=== PATIENT | male | born 2000 | race Caucasian/White ===

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

== ENCOUNTER 2019-08-11 00:26 | Emergency (ER) | payer SELFPAY ==
[2019-08-11] MEDS ORDERED: NORMAL SALINE 1000 ML 1,000 ML IV ONE (04:41)
--- NOTE | 2019-08-11 04:43 | ER Document Report ---
ED General - General Chief Complaint: Altered Mental Status Stated Complaint: REPORTS SYNCOPAL EPISODE Time Seen by Provider: 08/11/19 04:20 Notes: Patient is a 19-year-old male that comes to the emergency department for chief complaint of an episode where he became extremely shaky and then felt like he could not move or speak. 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 He denies difficulty breathing, passing out, headache, fever, nausea or vomiting. He denies alcohol, he denies recreational drugs otherwise. He denies any daily medications or past medical history. Girlfriend and mother at bedside. Patient states this is never happened to him before and he is smoked from the same stash in the past. TRAVEL OUTSIDE OF THE [place] IN LAST 30 DAYS: No - Related Data Allergies/Adverse Reactions: No Known Allergies Allergy (Unverified 08/11/19 05:50) Past Medical History - General Information source: Patient - Social History Smoking Status: Never Smoker Frequency of alcohol use: None Drug Abuse: Marijuana Lives with: Family Family History: Reviewed & Not Pertinent Patient has suicidal ideation: No Patient has homicidal ideation: No Renal/ Medical History: Denies: Hx Peritoneal Dialysis Surgical Hx: Negative - Immunizations Immunizations up to date: Yes Hx Diphtheria, Pertussis, Tetanus Vaccination: Yes - 09/02/08 Review of Systems - Review of Systems Constitutional: See HPI EENT: No symptoms reported Cardiovascular: No symptoms reported Respiratory: No symptoms reported Gastrointestinal: No symptoms reported Genitourinary: No symptoms reported Male Genitourinary: No symptoms reported Musculoskeletal: See HPI Skin: No symptoms reported Hematologic/Lymphatic: No symptoms reported Neurological/Psychological: See HPI Physical Exam - Vital signs Vitals: Temp Pulse Resp BP Pulse Ox 98.6 F 64 16 125/79 97 08/11/19 01:04 08/11/19 01:04 08/11/19 01:04 08/11/19 01:04 08/11/19 01:04 - Notes Notes: GENERAL: Sleeping but easily aroused HEAD: Normocephalic, atraumatic. EYES: Pupils equal, round, and reactive to light. Extraocular movements intact. ENT: Oral mucosa dry, tongue midline. Oropharynx unremarkable. Airway patent. NECK: Full range of motion. Supple. Trachea midline. LUNGS: Clear to auscultation bilaterally, no wheezes, rales, or rhonchi. No respiratory distress. HEART: Regular rate and rhythm. No murmur ABDOMEN: Soft, non-tender. Non-distended. Bowel sounds present in all 4 quadrants. GENITOURINARY: Deferred EXTREMITIES: Moves all 4 extremities spontaneously. No edema, normal radial and dorsalis pedis pulses bilaterally. No cyanosis. BACK: no cervical, thoracic, lumbar midline tenderness. No saddle anesthesia, normal distal neurovascular exam. Moves all extremities in full range of motion. NEUROLOGICAL: Alert and oriented x3. Normal speech. Cranial nerves II through XII grossly intact. PSYCH: Poor eye contact and speaks in low tones SKIN: Warm, dry, normal turgor. No rashes or lesions noted. Course - Re-evaluation Re-evalutation: Patient snoring, sleeping but easily aroused. Initially he was speaking in very quiet tones, however as I discussed his work-up, his symptoms, his evaluation his voice became much stronger. Reportedly patient was very shaky when they brought him to the room in a wheelchair then he got up, ambulated to the bed without any difficulty, and then began shaking again prior to my evaluation per the nursing staff. Patient is not tachycardic, vital signs unremarkable. CBC, chemistry, urinalysis unremarkable except for elevated specific gravity, he was given IV fluids. EKG unremarkable. Drug screen shows marijuana but is otherwise unremarkable. Patient states he did not sleep well last night, did not hydrate at work, and then smoked the weed with subsequent symptoms. Symptoms have resolved. No complaints at this time after IV fluids. Discussed with patient, family, discussed precautions, illegal substance side effects, and return precautions. They state understanding and agreement. Stable at time of discharge. - Vital Signs Vital signs: Temp Pulse Resp BP Pulse Ox 97.9 F 62 12 118/74 100 08/11/19 06:45 08/11/19 06:45 08/11/19 06:45 08/11/19 06:45 08/11/19 06:45 - Laboratory Result Diagrams: 08/11/19 05:00 08/11/19 05:00 - EKG Interpretation by Me Additional EKG results interpreted by me: EKG shows sinus rhythm at a rate of 61, normal axis, no T wave inversions or ST segment changes in consecutive leads. Amplitude is large but patient is very slim and is somewhat muscular. Discharge - Discharge Clinical Impression: Dehydration, Muscle tremor, Medication side effects, Substance abuse Condition: Stable Disposition: HOME, SELF-CARE Additional Instructions: Your work-up is reassuring, you have been rehydrated, continue to hydrate and rest. Symptoms should resolve. Avoid THC and other illegal substances, these have a variety of side effects and can be dangerous. Return to the emergency department for any concerning or worsening symptoms including vomiting, fever, difficulty breathing, or any other concerning or worsening symptoms. Forms: Treatment of Relative/Child
[2019-08-11 05:20] LABS: ABSOLUTE EOSINOPHILS # (AUTO) 0.1 10^3/uL (0.0-0.6); ABSOLUTE LYMPHOCYTES (AUTO) 2.9 10^3/uL (0.5-4.7); ABSOLUTE MONOCYTES (AUTO) 0.6 10^3/uL (0.1-1.4); ABSOLUTE NEUT (AUTO) 3.9 10^3/uL (1.7-8.2); BASOPHILS % (AUTO) 0.3 % (0-2); EOSINOPHILS % (AUTO) 1.8 % (0-6); HEMATOCRIT 40.3 % (37.9-51.0); HEMOGLOBIN 14.1 g/dL (13.5-17.0); LYMPHOCYTES % (AUTO) 38.1 % (13-45); MEAN CORPUSCULAR HEMOGLOBIN 31.1 pg (27.0-33.4); MEAN CORPUSCULAR VOLUME 89 fl (80-97); MONOCYTES % (AUTO) 8.3 % (3-13); PLATELET COUNT 192 10^3/uL (150-450); RED BLOOD COUNT 4.54 10^6/uL (4.35-5.55); RED CELL DISTRIBUTION WIDTH 12.8 % (11.5-14.0); SEGMENTED NEUTROPHILS % (AUTO) 51.5 % (42-78); TOTAL CELLS COUNTED % (AUTO) 100 %; WHITE BLOOD COUNT 7.6 10^3/uL (4.0-10.5)
[2019-08-11 05:31] LABS: APPEARANCE,URINE SLIGHTLY-CLOUDY; BILIRUBIN,URINE NEGATIVE (NEGATIVE); COLOR,URINE YELLOW; GLUCOSE, URINE NEGATIVE (NEGATIVE); KETONES,URINE NEGATIVE (NEGATIVE); LEUKOCYTE ESTERASE,URINE NEGATIVE (NEGATIVE); NITRITE,URINE NEGATIVE (NEGATIVE); PROTEIN,URINE NEGATIVE (NEGATIVE); URINE SPECIFIC GRAVITY 1.023; UROBILINOGEN,URINE NEGATIVE mg/dL (<2.0)
[2019-08-11 05:53] LABS: ALBUMIN 3.8 g/dL (3.5-5.0); ALKALINE PHOSPHATASE 44 U/L (38-126); ANION GAP 9 (5-19); ASPARTATE AMINO TRANSFERASE 21 U/L (17-59); BILIRUBIN,TOTAL 0.6 mg/dL (0.2-1.3); BLOOD UREA NITROGEN 11 mg/dL (7-20); CALCIUM 9.1 mg/dL (8.4-10.2); CARBON DIOXIDE 27 mmol/L (22-30); CHLORIDE 105 mmol/L (98-107); CREATINE KINASE 94 U/L (55-170); GLUCOSE 105 mg/dL (75-110); POTASSIUM 3.6 mmol/L (3.6-5.0); TOTAL PROTEIN 6.7 g/dL (6.3-8.2)
[2019-08-11 05:54] LABS: ALCOHOL < 10 mg/dL (NONE DETECTED)
[2019-08-11 05:57] LABS: URINE AMPHETAMINES SCREEN NEGATIVE; URINE BARBITURATES SCREEN NEGATIVE; URINE BENZODIAZEPINES SCREEN NEGATIVE; URINE COCAINE SCREEN NEGATIVE; URINE METHADONE SCREEN NEGATIVE; URINE PHENCYCLIDINE SCREEN NEGATIVE
[2019-08-11 05:58] LABS: URINE MARIJUANA (THC) SCREEN UNCONFIRMED POSITIVE
[2019-08-11 06:52] VITALS: BP 118/74
--- NOTE | 2019-08-11 07:07 | EKG REPORT ---
SEVERITY:- BORDERLINE ECG - SINUS RHYTHM BORDERLINE Q WAVE IN ANTERIOR LEADS INFERIOR Q WAVES, PROBABLY NORMAL VARIATION : Confirmed by: [place] MD 11-Aug-2019 07:06:02
== END 2019-08-11 06:45 | disposition home or self-care (01) ==
LOC: ER 00:26
DX: T50.905A Adverse effect of unspecified drugs, medicaments and biological substances, initial encounter (principal); E86.0 Dehydration; R25.1 Tremor, unspecified; F19.10 Other psychoactive substance abuse, uncomplicated; F12.10 Cannabis abuse, uncomplicated; R41.82 Altered mental status, unspecified; Y92.9 Unspecified place or not applicable
CPT/HCPCS: 93005; 36415; 80307 ×2; 82550; 85025; 80053; 81001; 93010; J7030; 96360; 99284